=== PATIENT | female | born 1955 | race Caucasian/White ===

== ENCOUNTER 2022-06-12 08:25 | Outpatient (CLI) | payer MEDICARE | END 2022-06-12 08:26 | disposition home or self-care (01) | LOC: CSHMAMMO 08:25 | PROVIDERS: ATTEND Obstetrics & Gynecology | DX: Z12.31 Encounter for screening mammogram for malignant neoplasm of breast (principal); Z80.3 Family history of malignant neoplasm of breast | CPT/HCPCS: 77063; 77067 ==

== ENCOUNTER 2022-11-09 13:24 | Outpatient (CLI) | payer MEDICARE | END 2022-11-09 13:25 | disposition home or self-care (01) | LOC: CSHMAMMO 13:24 | PROVIDERS: ATTEND Obstetrics & Gynecology | DX: R92.8 Other abnormal and inconclusive findings on diagnostic imaging of breast (principal) | CPT/HCPCS: 76642; 77065; G0279 ==

== ENCOUNTER 2024-04-28 13:19 | Outpatient (CLI) | payer MEDICARE | END 2024-04-28 13:20 | disposition home or self-care (01) | LOC: CSHMAMMO 13:19 | PROVIDERS: ATTEND Obstetrics & Gynecology | DX: Z13.820 Encounter for screening for osteoporosis (principal); M81.0 Age-related osteoporosis without current pathological fracture; N63.20 Unspecified lump in the left breast, unspecified quadrant; R92.8 Other abnormal and inconclusive findings on diagnostic imaging of breast | CPT/HCPCS: 76642; 77066; 77080; G0279 ==

== ENCOUNTER 2025-07-28 09:06 | Outpatient (CLI) | payer MEDICARE | END 2025-07-28 09:07 | disposition home or self-care (01) | LOC: CSHMAMMO 09:06 | PROVIDERS: ATTEND Internal Medicine | DX: Z12.31 Encounter for screening mammogram for malignant neoplasm of breast (principal); Z80.3 Family history of malignant neoplasm of breast | CPT/HCPCS: 77063; 77067 ==